=== PATIENT | male | born 1985 | race Caucasian/White ===

== ENCOUNTER 2016-04-18 21:19 | Emergency (ER) | payer MEDICARE, BC ==
[~2016-04-18 21:19] MED LIST: ABILIFY30 M1 PO; ABILIFY30 MG PO; ACID CONTROL20 MG PO; BACTRIM DS TAB1 EAC2 PO; BACTROBAN TP; BUSPIRONE HCL10 M2 PO; CEPHALEXIN500 M1 PO; CLONAZEPAM1 M2 PO; CLONAZEPAM1 MG PO; CYCLOBENZAPRINE5 M1 PO; DEPAKOTE500 M1 PO; GEODON40 M1 PO; KEFLEX500 MG PO; LAMICTAL200 MG PO; LIDOCAINE HCL100 ML SSP; Lamictal PO; OMEPRAZOLE20 MG PO; RISPERDAL1 MG PO; RISPERDAL12.5 MG/2 IM; RISPERDAL3 M2 PO; RISPERDAL3 MG PO; SEROQUEL200 MG PO; SEROQUEL300 MG PO; WELLBUTRIN SR150 MG PO; [UNRECOGNIZED DRUG - OTHER] IM
[2016-04-18] MEDS ORDERED: NORCO 5-325 TA1 EACH PO (22:00)
== END 2016-04-18 22:18 ==
LOC: EDMED 21:19
DX: T65.891A Toxic effect of other specified substances, accidental (unintentional), initial encounter (principal); T28.5XXA Corrosion of mouth and pharynx, initial encounter

== ENCOUNTER 2016-05-04 00:39 | Emergency (ER) | payer MEDICARE, BC ==
[~2016-05-04 00:39] MED LIST changes: +NORCO 5-325 TA1 EACH PO
[2016-05-04] MEDS ORDERED: AMOXICILLIN875 M1 PO (01:24)
[2016-05-04] MEDS ORDERED: ZOVIRAX800 M1 PO (01:24)
== END 2016-05-04 01:35 ==
LOC: EDMED 00:39
DX: L08.9 Local infection of the skin and subcutaneous tissue, unspecified (principal); Z88.8 Allergy status to other drugs, medicaments and biological substances